=== PATIENT | male | born 1990 | race Caucasian/White ===

== ENCOUNTER 2020-02-26 08:26 | Emergency (ER) | payer BC, SELFPAY ==
--- NOTE | 2020-02-26 08:32 | ED.ALLEREA ---
HPI - Allergic Reaction General Chief complaint: Allergic Reaction Stated complaint: rash/rose/fatigue Time Seen by Provider: 02/26/20 08:32 Source: patient and RN notes reviewed History of Present Illness HPI narrative: Patient is a 30-year-old male who presents the urgent care with complaints of possible allergic reaction/rash. Patient states that he noticed the rash approximately 1 week ago and originally thought it was poison nick. Patient states he also got a COVID test recently due to some upper congestion and a notable rash. Patient states that the COVID test on Tuesday was negative. Patient has been taking Benadryl, Zyrtec and using topical cream. Patient denies of any other acute complaints. No acute distress noted. Patient read the plan of care. Related Data Allergies Allergy/AdvReac Type Severity Reaction Status Date / Time amoxicillin Allergy Mild unknown Verified 05/28/19 09:51 clavulanic acid Allergy Mild unknown Verified 05/28/19 09:51 Review of Systems Review of Systems: Narrative: CONSTITUTIONAL: Denies fever, chills, or sweats. EYES: Denies visual changes, redness, or discharge. ENT: Denies rhinorrhea, congestion, sore throat, or otalgia. CARDIOVASCULAR: Denies chest pain, palpitations, or edema. RESPIRATORY: Denies cough or dyspnea. GASTROINTESTINAL: Denies abdominal pain, nausea, vomiting, or diarrhea. GENITOURINARY: Denies dysuria or hematuria. SKIN: Reports of itchy raised rash to bilateral arms, ankles and hands MUSCULOSKELETAL: Denies back pain, joint pain, or myalgia. NEUROLOGIC: Denies headache, numbness, or weakness. All other systems reviewed are negative, except as documented in HPI. [facility] Family History Family History (Updated 05/28/19 @ 10:00 by Elizabeth Talavera) Father Hypertension Grandparent Breast cancer Grandparent Heart attack Social History Social History Substance use: current Substance use type: does not use Gender identity (if verbalized by the patient): Male Comments At the time of my signature, I reviewed and agree with the nursing past medical, surgical, social, and family history. There is no relevant family history pertinent to the patient complaint. Exam Narrative: Exam Narrative: GENERAL: This is a well-nourished, well-developed patient, in no apparent distress. HEAD: normocephalic, atraumatic. EYES: PERRL. Sclera clear/white. Vision is grossly intact. EARS: External ears normal NOSE: External nose normal with no obvious nasal discharge, nares without redness, no rhinorrhea. THROAT: Mucous membranes moist NECK: Neck supple SKIN: Patchy raised erythemic dermatitis noted to the bilateral arms, bilateral ankles, and bilateral hands NEURO: awake, alert, and oriented to person, place and time. There were no obvious focal neurologic abnormalities. EXTREMITIES: No clubbing, cyanosis, or edema. Course Vital Signs Vital signs: Vital Signs Temperature 97.7 F 02/26/20 08:36 Pulse Rate 61 02/26/20 08:36 Respiratory Rate 20 02/26/20 08:36 Blood Pressure 154/83 H 02/26/20 08:36 Pulse Oximetry 99 02/26/20 08:36 Temperature 97.7 F 02/26/20 08:36 Pulse Rate 61 02/26/20 08:36 Respiratory Rate 20 02/26/20 08:36 Blood Pressure 154/83 H 02/26/20 08:36 Pulse Oximetry 99 02/26/20 08:36 Reviewed?patient is informed that they may have pre-hypertension or hypertension based on a blood pressure reading in the department. I recommend the patient call the primary care provider listed on their discharge instructions or a physician of their choice this week to arrange follow-up for further evaluation of possible pre-hypertension or hypertension. MDM - Allergic Reaction MDM Narrative Medical decision making narrative: Advised the patient to complete steroid regimen as prescribed. Continue using Zyrtec tachycardia during the day and Benadryl as needed prior to bedtime. Use her at ho
[2020-02-26 08:36] VITALS: BP 154/83; PULSE 61; RESP 20; TEMP 36.5; O2SAT 99
== END 2020-02-26 08:54 | disposition home or self-care (01) ==
PROVIDERS: Emergency Provider Nurse Practitioner Family
DX: L23.7 Allergic contact dermatitis due to plants, except food (principal)
CPT/HCPCS: 99213; G0463

== ENCOUNTER 2020-11-05 09:16 | Outpatient (CLI) | payer BC, SELFPAY | END 2020-11-05 09:17 | disposition home or self-care (01) | LOC: ANHCOVIDVC 09:16 | PROVIDERS: PCP Nurse Practitioner | DX: Z23 Encounter for immunization (principal) | CPT/HCPCS: 0001A; 91300 ==

== ENCOUNTER 2020-11-26 09:16 | Outpatient (CLI) | payer BC, SELFPAY | END 2020-11-26 09:17 | disposition home or self-care (01) | LOC: ANHCOVIDVC 09:16 | PROVIDERS: PCP Nurse Practitioner | DX: Z23 Encounter for immunization (principal) | CPT/HCPCS: 0002A; 91300 ==